=== PATIENT | male | born 1995 | race Caucasian/White ===

== ENCOUNTER 2021-12-13 23:57 | Inpatient (IN) | payer OTHER ==
[~2021-12-13] VITALS: Ht 193 cm; Wt 93.0 kg
[2021-12-14 01:10] LABS: HEMOGLOBIN 13.5 gm/dl (14.0-17.5); RED BLOOD COUNT 4.44 M/UL (4.20-5.50); WHITE BLOOD COUNT 8.1 K/UL (4.5-11.0)
[2021-12-14 01:26] LABS: BUN/CREATININE RATIO 12 (0-10)
[2021-12-14 04:05] LABS: HEMOGLOBIN 13.8 gm/dl (14.0-17.5); RED BLOOD COUNT 4.5 M/UL (4.20-5.50); WHITE BLOOD COUNT 9.1 K/UL (4.5-11.0)
[2021-12-14 04:19] LABS: BUN/CREATININE RATIO 11 (0-10)
[2021-12-15 01:49] LABS: HEMOGLOBIN 13.6 gm/dl (14.0-17.5); RED BLOOD COUNT 4.37 M/UL (4.20-5.50)
[2021-12-15 01:54] LABS: WHITE BLOOD COUNT 6.8 K/UL (4.5-11.0)
[2021-12-15 02:29] LABS: BUN/CREATININE RATIO 14 (0-10)
--- NOTE | 2021-12-15 11:38 | NUR ---
Patient placed in room at approximately 11:30am. Patient is stable, given the call light with bed in lowest position. Patient was accompanied by sitter for constant surveilance. Vitals are stable and patient has no complaints.
[2021-12-18 03:24] LABS: BUN/CREATININE RATIO 17 (0-10)
--- NOTE | 2021-12-18 16:54 | NUR ---
PATIENT WAS AMBULATED DOWNSTAIRS WITH DEPUTY IN HANDCUFFS. PATIENT VERBALIZED UNDERSTANDING AND COOPERATIVE. IV REMOVED, CATHETER TIP INTACT.
== END 2021-12-18 16:17 | DRG 917 ==
LOC: ER1 23:57 → PROG CARE 12-14 02:42 → CDU 12-14 02:42 → PROG CARE 12-14 05:24 → MED SURG 4 12-15 11:17
PROVIDERS: Family Medicine; Internal Medicine; ADMIT Internal Medicine
DX: T43.592A Poisoning by other antipsychotics and neuroleptics, intentional self-harm, initial encounter (principal); G92.8 Other toxic encephalopathy; T14.91XA Suicide attempt, initial encounter; F20.9 Schizophrenia, unspecified; F17.200 Nicotine dependence, unspecified, uncomplicated; F10.10 Alcohol abuse, uncomplicated; R40.0 Somnolence; F32.A Depression, unspecified
CPT/HCPCS: 36415; 36600; 71045; 80053; 80307; 81001; 82803; 83735; 85025; 85027; 93005; 99285; G0480